=== PATIENT | male | born 1990 | race Caucasian/White ===

== ENCOUNTER 2017-06-23 21:31 | Emergency (ER) | payer SELFPAY ==
[~2017-06-23] VITALS: Ht 167.6 cm; Wt 117.9 kg
[2017-06-23 22:21] VITALS: Ht 167.6 cm; Wt 117.9 kg
[2017-06-24 01:30] VITALS: BP 135/71
== END 2017-06-24 01:30 | disposition home or self-care (01) ==
LOC: ED 21:31
DX: S82.232A Displaced oblique fracture of shaft of left tibia, initial encounter for closed fracture (principal); I10 Essential (primary) hypertension; X58.XXXA Exposure to other specified factors, initial encounter; Y93.66 Activity, soccer; Y92.89 Other specified places as the place of occurrence of the external cause; Y99.8 Other external cause status